=== PATIENT | female | born 1990 | race Caucasian/White ===

== ENCOUNTER 2018-03-31 02:45 | Emergency (ER) | payer OTHER ==
[~2018-03-31] VITALS: Ht 157.5 cm; Wt 108.9 kg
[2018-03-31 03:28] LABS: HEMATOCRIT 40.3 % (36.0-46.0); HEMOGLOBIN 13.6 G/DL (11.9-15.5); MCH 29.8 PG (29.0-34.0); MCHC 33.7 G/DL (30.0-36.0); MCV 88.2 FL (83-99); PLATELET COUNT 201 K/uL (156-360); RBC DIS.WIDTH-CV 12.9 % (11.8-14.6); RBC DIS.WIDTH-SD 42.1 % (39-53); RED BLOOD COUNT 4.57 M/uL (3.80-5.20); WHITE BLOOD COUNT 14.7 K/uL (4.1-10.2)
[2018-03-31 03:45] LABS: ALBUMIN 4.3 g/dL (3.2-4.8); CHLORIDE 105 mEq/L (99-109); POTASSIUM 3.6 mEq/L (3.7-5.4); SODIUM 139 mEq/L (136-147)
[2018-03-31 03:47] LABS: GLUCOSE 129 mg/dL (70-99); TOTAL PROTEIN 7.7 g/dL (6.4-8.3)
[2018-03-31 03:49] LABS: TOTAL BILIRUBIN 0.5 mg/dL (0.0-1.0)
[2018-03-31 03:51] LABS: ALKALINE PHOSPHATASE 62 IU/L (3-129); CREATININE 0.8 mg/dL (0.6-1.3)
[2018-03-31 03:52] LABS: UREA NITROGEN (BUN) 15 mg/dL (9-23)
[2018-03-31 03:53] LABS: AST (GOT) 19 IU/L (2-34)
[2018-03-31 03:54] LABS: ALT (GPT) 22 IU/L (3-49); LIPASE 22 U/L (1.0-51.0)
[2018-03-31 03:57] LABS: GFR ESTIMATE (CALCULATED) > 59 mL/min/
[2018-03-31 04:00] LABS: QUANTITATIVE HCG 102.7 MIU/ML
[2018-03-31 05:02] LABS: APPEARANCE SL.HAZY ((CLEAR)); BILIRUBIN NEGATIVE; BLOOD NEGATIVE; COLOR YELLOW ((YELLOW)); GLUCOSE (STRIP) NEGATIVE; KETONES NEGATIVE; LEUKOCYTES NEGATIVE; NITRITE NEGATIVE; PROTEIN (STRIP) 30; SPECIFIC GRAVITY 1.031 (1.000-1.030); UROBILINOGEN 0.2 MG/DL (0.2-1.0)
[2018-03-31 05:06] LABS: BACTERIA RARE /HPF; EPITHELIAL CELLS RARE /HPF; MUCUS 1+ /LPF; UCUL ADDED? NO; WHITE BLOOD CELLS 0-5 /HPF (0-5)
[2018-03-31] MEDS ORDERED: ZOFRAN ODT4 MG PO (05:12)
[2018-03-31 05:54] VITALS: BP 127/84
== END 2018-03-31 05:54 | disposition home or self-care (01) ==
LOC: EME 02:45
DX: O26.891 Other specified pregnancy related conditions, first trimester (principal); Z3A.01 Less than 8 weeks gestation of pregnancy; O21.9 Vomiting of pregnancy, unspecified; R10.9 Unspecified abdominal pain
CPT/HCPCS: 80053; 81003; 83690; 84702; 85027; 99281; 99285; J1200; J2765; J7030